=== PATIENT | male | born 1960 | race Caucasian/White ===

== ENCOUNTER 2016-09-26 07:04 | Day surgery (SDC) | payer OTHER ==
[~2016-09-26] VITALS: Ht 194.3 cm; Wt 130.0 kg
[~2016-09-26 07:04] MED LIST: LACTATED RINGERS 1,000 ML IV SCH; SODIUM CHLORIDE FLUSH 3 ML SYR IV PRN
[2016-09-26 07:10] VITALS: BP 131/86
[2016-09-26] MEDS ORDERED: PROPOFOL 20 ML IV ONE (07:22)
[2016-09-26] MEDS ORDERED: MIDAZOLAM 2 MG/2 ML (VERSED) VIAL ONE (07:22)
[2016-09-26 09:01] VITALS: BP 115/53
[2016-09-26 09:43] VITALS: BP 125/75
[2016-09-26 10:17] VITALS: BP 118/73
[2016-09-26 10:56] VITALS: BP 122/71
[2016-09-26 11:34] VITALS: BP 127/80
== END 2016-09-26 11:40 | disposition home or self-care (01) ==
LOC: ASC 07:04
PROVIDERS: ATTEND Surgery
PROC: 0DBM8ZX Excision of Descending Colon, Via Natural or Artificial Opening Endoscopic, Diagnostic (ICD-10-PCS; principal; 2016-09-26)
DX: Z12.11 Encounter for screening for malignant neoplasm of colon (principal); D12.4 Benign neoplasm of descending colon; Z86.010 Personal history of colon polyps; I10 Essential (primary) hypertension; E11.9 Type 2 diabetes mellitus without complications; Z79.84 Long term (current) use of oral hypoglycemic drugs; G47.30 Sleep apnea, unspecified
CPT/HCPCS: 36415; 45385; 84132; J2250; J7120